=== PATIENT | male | born 1950 | race Caucasian/White ===

== ENCOUNTER 2023-01-15 05:26 | Emergency (ER) | payer MEDICARE, BC, SELFPAY ==
[2023-01-15 05:33] VITALS: BP 180/85; PULSE 82; RESP 20; TEMP 36.4; O2SAT 97; BMI 33.0
--- NOTE | 2023-01-15 05:50 | ED_ITS ---
HPI - General Adult General Chief complaint: Allergic Reaction Stated complaint: Reaction to meds Time Seen by Provider: 01/15/23 05:38 Source: patient Mode of arrival: ambulatory Limitations: no limitations History of Present Illness HPI narrative: 72-year-old male presents the emergency department with what he believes is a reaction to doxycycline. He was started on this on the for suspected urinary infection. This would be an unusual choice. He was told that he had no infection any is unsure why he is on the antibiotic. He certainly has no dysuria nor symptoms of any fevers. I do not have access any records that would explain the rationale here. Patient reports that he took his last dose of the doxycycline yesterday morning at around 6:30 a.m.. He says that he noticed a slightly blotchy rash on his chest. He spoke with the pharmacist yesterday afternoon and they told him it was likely from the doxycycline and he should discontinue it. He reports that he started having the same blotchy rash on his face and around his eyelids when he woke up this morning, therefore he comes to the emergency room. He notes no vision changes, no shortness of breath, no swallowing difficulty, no swelling of the tongue or lips. No prior history of similar reactions per his report. He has not taken any further doses of the doxycycline. No prior history of anaphylaxis. Past medical history reportedly benign per patient. Medications reviewed. ROS notable for no other generalized, HEENT, respiratory, cardiovascular, GI, skin or neurological changes. Related Data Home Medications Medication Instructions Recorded Confirmed atorvastatin 40 mg tablet 40 mg PO QPM 01/15/23 01/15/23 doxycycline hyclate 100 mg tablet 100 mg PO BID 01/15/23 01/15/23 lisinopril 10 mg tablet 10 mg PO DAILY 01/15/23 01/15/23 Exam Const: Vital Signs, click to edit/add: Vital Signs - 24 hr 01/15/23 05:33 Temperature 97.6 F Pulse Rate [Pulse Oximeter] 82 Respiratory Rate 20 Blood Pressure [Ri ght Upper Arm] 180/85 H Pulse Oximetry 97 Oxygen Delivery Me thod Room Air Documenting provider has reviewed patient's vital signs: yes Common normals: no apparent distress General appearance: cooperative, comfortable and well kempt HENMT: Common normals: normocephalic and head/scalp atraumatic Head and scalp: normocephalic and atraumatic Mouth: oral and palatal mucosa normal Throat: posterior oropharynx normal Other: Very mild facial swelling, lower eyelid, upper cheek. Tongue, lips, oral cavity, perioral area not affected. Eye: Common normals: conjunctivae normal Conjunctiva: conjunctiva(e) normal Other: Pupils equal and round, normal visual gaze and tracking Neck & C-Spine: Common normals: full ROM and no lymphadenopathy Resp: Common normals: normal respiratory effort, no use of accessory muscles and clear to auscultation bilaterally Effort & inspection: able to speak in complete sentences Auscultation: clear to auscultation bilaterally Cardio: Common normals: regular rate, regular rhythm, S1 normal heart sound, S2 normal heart sound and no murmurs Rate: regular rate Rhythm: regular rhythm Heart sounds: S1 normal and S2 normal Psych: Appearance: well kempt Attention/concentration: attention grossly intact Insight: fair Judgement: fair Skin: Narrative: Mild you should Isha rash on upper cheeks and lower eyelid is stated above. Not currently present on other areas of exposed skin. Course Course Hospital Course: Mild allergic reaction without signs of anaphylaxis. Patient will be given 20 mg of famotidine, tender prednisone, 25 of Benadryl and observed. If no further signs of anaphylaxis, will be discharged home with instructions to take a nondrowsy antihistamine like Claritin, Mery or Zyrtec twice daily for the next 5 days, discontinue the doxycycline. Benadryl 25 mg at bedtime for the next few nights and also every 8 hours as needed for worsening reaction. Alarm symptoms reviewed that would warrant ED presentation. He verbalizes understanding and agreement. May continue all other medications as prescribed Vital Signs Vital signs: Initial Vital Signs Temperature 97.6 F 01/15/23 05:33 Temperature Source Temporal Artery Scan 01/15/23 05:33 Pulse Rate 82 01/15/23 05:33 Respiratory Rate 20 01/15/23 05:33 Blood Pressure 180/85 H 01/15/23 05:33 Blood Pressure Mean 116 H 01/15/23 05:33 Pulse Oximetry 97 01/15/23 05:33 Oxygen Delivery Method Room Air 01/15/23 05:33 Vital Signs Temperature 97.6 F 01/15/23 05:33 Pulse Rate 82 01/15/23 05:33 Respiratory Rate 20 01/15/23 05:33 Blood Pressure 180/85 H 01/15/23 05:33 Pulse Oximetry 97 01/15/23 05:33 Oxygen Delivery Method Room Air 01/15/23 05:33 Temperature 97.6 F 01/15/23 05:33 Pulse Rate 82 01/15/23 05:33 Respiratory Rate 20 01/15/23 05:33 Blood Pressure 180/85 H 01/15/23 05:33 Pulse Oximetry 97 01/15/23 05:33 Oxygen Delivery Method Room Air 01/15/23 05:33 Discharge Plan Discharge Clinical Impression: Allergic reaction Patient Disposition: Home, Self-Care Condition: Stable Instructions: General Allergic Reaction (ED) Additional Instructions: Has we discussed, your having a mild allergic reaction, likely to the doxycycline. Do not restart taking that medication. To treat the reaction, I would like for you to continue on the regimen that we have started in the emergency department. You will take a nondrowsy antihistamine like Claritin, Mery, or Zyrtec twice daily for the next 5 days. You will take Benadryl 25 mg at bedtime every night for the next 2 night and also up to every 8 hours as needed if the reaction seems to be worsening. If you start to notice swelling of the tongue, throat, or difficulty breathing, come back to the emergency room. The rash and itchy reaction may come and go a bit, especially in the heat and with activity. This should start to improve in a couple of days. Activity Level: No Restrictions Discharge Diet: Regular Prescriptions: No Action atorvastatin 40 mg tablet 40 mg PO QPM lisinopril 10 mg tablet 10 mg PO DAILY doxycycline hyclate 100 mg tablet 100 mg PO BID Follow Up/Referrals: Beni Ragsdale MD [Primary Care Provider] - Stand Alone Forms: [employer] Info Instructions
[2023-01-15] MEDS: diphenhydrAMINE 25 MG CAPSULE PO (05:56)
[2023-01-15] MEDS: predniSONE 10 MG TABLET PO (05:56)
[2023-01-15] MEDS: FAMOTIDINE 20 MG TABLET PO (05:56)
== END 2023-01-15 06:13 | disposition home or self-care (01) ==
PROVIDERS: Emergency Provider Family Medicine; PCP Family Medicine
DX: T50.905A Adverse effect of unspecified drugs, medicaments and biological substances, initial encounter (principal)
CPT/HCPCS: 99282; 99283; A9270; J7512

== ENCOUNTER 2023-12-25 14:28 | Outpatient (RCR) | payer SELFPAY | END 2024-12-10 08:20 | disposition home or self-care (01) | LOC: MOW 14:28 | PROVIDERS: PCP Family Medicine; Visit Provider Family Medicine | DX: Z76.0 Encounter for issue of repeat prescription (principal) | CPT/HCPCS: S5170 ==

== ENCOUNTER 2025-04-06 12:46 | Emergency (ER) | payer MEDICARE, BC, SELFPAY ==
[2025-04-06] VITALS (11 sets, daily range): BP systolic 135–156; BP diastolic 67–70; PULSE 55–67; RESP 10–24; TEMP 36.4; O2SAT 93–99; BMI 34.5
--- OUTSIDE RECORDS SUMMARY | 2025-04-06 12:48 | XMS_ITS | Clinical Summary ---
Author Organization [facility] Address [address] [place] [address] Care Team Providers Care Campus Safety Officer Name Role Phone Beni Ragsdale MD Primary Care Provider [phone] Allergies Active Allergy Reactions Criticality Noted Date Comments Ciprofloxacin Other - Describe In Comment Field 05/16/2021 Leg weakness. Irregular heart beat. Doxycycline Hyclate Hives 02/05/2023 Medications aspirin (ECOTRIN) 81 mg enteric coated tablet Take 1 tablet by mouth once daily with a meal. 0 017 Active acetaminophen (TYLENOL EXTRA STRGTH) 500 mg tablet Take 1 tablet by mouth every 6 hours if needed. Max acetaminophen dose: 4000mg in 24 hrs. 0 021 Active sy-rqy-cjggf acid-lutein (Centrum Silver) 400-250 mcg chew Chew by mouth. 0 021 Active glucosam-chondroi tin-diet cb25 116-100 mg cap Take by mouth. 0 021 Active echinacea 400 mg capsule Take 1 Capsule (400 mg) by mouth once daily. 0 021 Active Aivtt-7-JKN-EPA-F savanah Oil 1,000 mg (120 mg-180 mg) cap Take 1 Capsule (1,000 mg) by mouth. 0 022 Active ascorbic acid, vitamin C, (Vitamin C) 500 mg tablet Take 500 mg by mouth once daily. Active omeprazole (PRILOSEC) 20 mg Delayed-Release capsule Take 1 Capsule (20 mg) by mouth two times daily before meals. Take 30 minutes prior to a meal 024 Active cyclobenzaprine (FLEXERIL) 10 mg tabletIndications :S/P cervical spinal fusion Take 0.5-1 Tablets (5-10 mg) by mouth 2 times daily if needed for Muscle Spasm. Wait until they call for this. 30 Tablet 2 025 Active lisinopriL (PRINIVIL; ZESTRIL) 10 mg tabletIndications :Hypertension, unspecified type TAKE ONE TABLET BY MOUTH ONE TIME DAILY 90 Tablet 025 Active atorvastatin (LIPITOR) 40 mg tabletIndications :Hyperlipidemia, unspecified hyperlipidemia type TAKE ONE TABLET BY MOUTH AT BEDTIME 90 Tablet 025 Active tamsulosin 0.4 mg capsuleIndication s:BPH with urinary obstruction Take 1 Capsule by mouth once daily after a meal. Take in the evening after supper. 90 Capsule 025 Active tamsulosin (FLOMAX) 0.4 mg capsuleIndication s:BPH with urinary obstruction Take 1 Capsule (0.4 mg) by mouth once daily after a meal. Take in the evening after supper. 90 Capsule 3 024 2024 Discontinued Active Problems Problem Noted Date Diagnosed Date DDD (degenerative disc disease), cervical 2018 HTN (hypertension) 03/19/2017 Prediabetes 02/06/2017 IFG (impaired fasting glucose) 01/18/2016 Non morbid obesity due to excess calories 2015 Erectile dysfunction 02/01/2015 S/P cervical spinal fusion 11/28/2009 Sensorineural hearing loss, bilateral 05/02/2008 Benign neoplasm of colon 02/27/2007 Overview (11/18/2023): Next colonoscopy due 09/2010 Colonoscopy 11/2023 2-SSA, repeat in 5 years Other and unspecified hyperlipidemia 11/27/2006 Encounters Date Type Department Care Team Description 03/31/2025 10:50 AM BREADMAN Office Visit [facility] [address] [place] [address] Marjorie Rudolph PA Toe Pain/problem (Dropped something on right big toe a few weeks ago while moving and it's all purple-only hurts if wearing shoes) 03/31/2025 Travel 03/31/2025 Refill [facility] [address] [place] [address] Beni Ragsdale MD Refill Request (Tamsulosin) 02/05/2025 Refill [facility] [address] [place] [address] Beni Ragsdale MD Refill Request (Lisinopril, Atorvastatin) 01/06/2025 Refill [facility] [address] [place] [address] Beni Ragsdale MD Refill Request from Last 3 Months Immunizations Immunization Administration Dates Next Due AMB Influenza, IIV4 PF (=>6 mos Flulaval,Fluzone Fluarix)(Flu Clinic Only) 02/24/2014 COVID-19 vaccine (Pfizer-Bio NTech 30mcg/0.3mL) 12YO+ XIANG-SUCROSE PF, MDV 08/29/2021 COVID-19 vaccine (CQuotient-Bio NTech 30mcg/0.3mL) PF, MDV 02/22/2021,08/04/2020,07/14/2020 Influenza A (H1N1), Inactivated 04/28/2009 Influenza A (H1N1), Inactiva deshawn (Age >=3 Years) 04/28/2009 Influenza, High-dose Inactivated 024,01/22/2019,01/14/2018,2015 Influenza, High-dose Quadriv alent Inactivated 01/31/2023,02/04/2022,01/28/2021,2019 Influenza, IIV3 (Age 6-35 mos) 03/08/2011,2009 Influenza, IIV3 (Age >=3 years) 07/06/19 16,03/02/2012,03/08/2011,2009,02/03/2009,02/18/2008,02/27/2007,1 06/09/2005,03/23/2005,03/26/2003 Influenza, IIV4 02/24/2014 Influenza, Inactivated IIV3 (Age 65+ Years) Preserv Free 02/05/2017 Pneumococcal Poly,23-Valent (Pneumovax) 08/27/2017 Pneumococcal conj 13-Valent (Prevnar 13) 08/12/2016,07/06/2015 Td, Preservative Free (age > = 7 Years) 08/28/2017 Tdap 09/04/2007 Zoster (Shingrix-RZV, recombinant) 11/02/2020, Family History Medical History Relation Name Comments Other Brother 1 Rob of old age at 89 Diabetes Brother 2 Woody of diabete s at 84 Other Brother 3 Drew of agent o range at 61 Cancer Father of brain c ancer at 85 Other Father of old age at 85 Heart Disease Maternal Uncle ME 50s Diabetes Mother 40s; of co mplic of this at age 68 Hypertension Mother Other Mother Morbid Obesity Cancer-colon Sister 1 Paola of this at about 77 Coronary artery disease Sister 2 Patricia CABG in her 70s; of CAD at 88 Valvular heart disease Sister 3 April Relation Name Status Comments Brother 1 Rob (Age 89) Brother 2 Woody (Age 84) Brother 3 Drew (Age 61) Father (Age 85) Maternal Uncle Mother (Age 68) Sister 1 Paola (Age 77) Sister 2 Patricia (Age 88) Sister 3 April Alive Social History Tobacco Use Types Packs/Day Years Used Date Smoking Tobacco: Former Cigarettes 0.5 10 0 05/12/1969 - 05/12/1979 Smokeless Tobacco: Never Tobacco Cessation:Counseling Given: Not Answered Alcohol Use Standard Drinks/Week Comments Not Currently 0 (1 standard drink = 0.6 oz pur e alcohol) rare holidays or anniversary PHQ-2 Answer Date Recorded PHQ-2 TOTAL SCORE 0 02/18/2024 Social Connections Answer Date Recorded Do you often feel lonely or isolated from those around you? 0 03/31/2025 Alcohol Use Answer Date Recorded How often do you have a drink containing alcohol ? 0 07/11/2021 Average Number of Drinks Not on file 022 How often do you have five or more drinks on one occasion? 0 07/11/2021 Financial Resource Strain Answer Date R ecorded Difficulty of Paying Living Expenses 3 03/31/2025 Difficulty of Paying Living Expenses Not on file 03/31/2025 Food Insecurity Answer Date Recorded Do you worry your food will run out before you are able to buy more? 1 03/31/2025 Transportation Needs Answer Date Record ed Does lack of transportation keep you from medica l appointments? 1 03/31/2025 Does lack of transportation keep you from work, meetings or getting things that you need? 1 03/31/2025 Housing Stability Answer Date Recorded What is your housing situation today? 1 03/31/2025 Utilities Answer Date Recorded Do you have trouble paying f or utilities (for example, heat, electricity, water, phone)? 1 03/31/2025 Sex and Gender Information Value Date Recorded Sex Assigned at Not on file Legal Sex Male 5:24 AM BREADMAN Gender Identity Not on file Sexual Orientation Not on file Occupation Industry Job Start Date Job End Date [place] Not on file Not on file Not on file Obstetrics History Last Filed Vital Signs Vital Sign Reading Time Taken Comments Blood Pressure 133/77 03/31/2025 10:51 AM BREADMAN Pulse 66 03/31/2025 10:51 AM BREADMAN Temperature 36.4 C (97.5 F) 04/25/2023 12:37 PM BREADMAN Respiratory Rate 16 11/11/2023 2:00 PM CDT Oxygen Saturation 98% 03/31/2025 10:51 AM BREADMAN Inhaled Oxygen Concentration - - Weight 89.4 kg (197 lb) 03/31/2025 10:51 AM BREADMAN Height 159.4 cm (5' 2.76) 02/18/2024 1:10 PM CD T Body Mass Index 35.17 02/18/2024 1:10 PM CDT Plan of Treatment Upcoming Encounters Date Type Department Care Team (Late st Contact Info) Description 04/15/2025 1:05 PM BREADMAN Office Visit [facility] [address] [place] [address] Beni Ragsdale MD [address] [place] [address] Health Maintenance Due Date Last Done Comments RSV vaccine for adults or (1 - 1-dose 75+ series) 2024 Influenza Vaccine (#1) 2025 , 01/22/2019, 01/14/2018, Additional history exists BMI (ht and wt on same day) for age 18+ 02/17/2025 02/18/2024, 10/01/2023, 09/11/2022, Additional history exists Depression screening for age 12+ 02/17/2025 02/18/2024, 10/01/2023, 10/01/2023, Additional history exists Medicare Wellness for age 65+ 02/18/2025 02/18/2024, 09/11/2022, 07/11/2021, Additional history exists Tetanus booster 08/29/2027 08/28/2017, 09/04/2007 Colonoscopy through age 75 11/10/202811/10, 11/11/2023, 11/11/2023 Lipids for age 45-75 02/17/2029 02/18/2024, 09/04/2022, 07/09/2021, Additional history exists Pneumococcal series for age 50+ Completed 08/27/2017, 08/12/2016, 07/06/2015 Zoster (shingles) series for age 50+ Completed 11/02/2020, 09/02/2020 Hepatitis C screening for age 18-79 Completed 07/09/2021 Hepatitis B series for 19+ Aged Out N o longer eligible based on patient's age to complete this topic Procedures Procedure Name Priority Date/Time Associated Diagnosis Comments LIPID PANEL W REFLEX MEASURED LDL Routine 02/18/2024 2:05 PM CDT Hyperlipidemia, unspecified hyperlipidemia type COLONOSCOPY DIAGNOSTIC Routine 11/11/2023 12:36 PM CDT Encounter for screening colonoscopy ANTI HCV Routine 07/09/2021 3:07 PM BREADMAN Need for hepatitis C screening test from Last 3 Months or Most Recently Relevant to Health Maintenance Results * (ABNORMAL) LIPID PANEL W REFLEX MEASURED LDL (02/18/2024 2:05 PM CDT) CHOLESTEROL, TOTAL 153 <200 mg/dL [facility] HDL CHOLESTEROL 46 > OR = 40 mg/dL [facility] TRIGLYCERIDES 167(H) <150 mg/dL [facility] LDL-CHOLESTEROL 80 mg/dL (calc) [facility] Comment: Reference range: <100 Desirable range <100 mg/dL for primary prevention; <70 mg/dL for patients with CHD or diabetic patients with > or = 2 CHD risk factors. LDL-C is now calculated using the Damon calculation, which is a validated novel method providing better accuracy than the Friedewald equation in the estimation of LDL-C. Lyle SS et al. TEDDY. 2013;310(75): 7192-5071 (http://education.Nubity/faq/PCH207) CHOL/HDLC RATIO 3.3 <5.0 (calc) [facility] NON HDL CHOLESTEROL 107 <130 mg/dL (calc) [facility] Comment: For patients with diabetes plus 1 major ASCVD risk factor, treating to a non-HDL-C goal of <100 mg/dL (LDL-C of <70 mg/dL) is considered a therapeutic option. Blood BLOOD SPECIMEN / Unknown 02/18/2024 2:05 PM CDT 02/18/2024 2:06 PM CDT Narrative [facility] - 02/19/2024 6:06 AM CDT FASTING:NO FASTING: NO Beni Ragsdale MD CHEMISTRY Final Resu lt [facility] [address] [place] [address], [facility] [id number] * COLONOSCOPY (11/11/2023 1:14 PM CDT) 11/11/2023 1:14 PM CDT Narrative Transcriptions Lyle Katz MD - 11/11/2023 1:46 PM CDT Patient Name: Nate Porras Procedure Date: 11/11/2023 Gender: Male Date of : 1950 Admit Type: Outpatient Procedure: Colonoscopy Proceduralist: Lyle Katz MD , Ericka Mckenna (Nurse), Maritza Andino (Nurse) Referring MD: Beni Ragsdale Indications/Pre-Op Diagnosis: Screening for colorectal malignant neoplasm, Last colonoscopy: date unknown (unable to locate last colonoscopy report) Medications: Fentanyl 100 micrograms IV, Midazolam 3 mgIV, The level of sedation administered wasmoderate Procedure Description: The patient had risks, benefits and alternatives explained to andgave informed consent. The patient had a stable cardiopulmonary status and judged an adequate candidate for conscious sedation. The [id number] was passed through the anus and advanced to the cecum, identified by appendiceal orifice and ileocecal valve. Thecolonoscopy was performed without difficulty. The patient tolerated the procedure well. The quality of the bowel preparation was good. The ileocecal valve, appendiceal orifice, and rectum were photographed. Complications: No immediate complications. Estimated Blood Loss & Specimen: Estimated blood loss: none. Specimen collected - Yes and sent to Laboratory Findings: The perianal and digital rectal examinations were normal. Two sessile polyps were found in the cecum. The polyps were 2 to 3 mmin size. These polyps were removed with a cold snare. Resection and retrieval were complete. The exam was otherwise without abnormality. Impressions/Post-Op Diagnosis: - Two 2 to 3 mm polyps in the cecum, removed with a cold snare.Resected and retrieved. - The examination was otherwise normal. Recommendation: - Patient has a contact number available for emergencies. The signsand symptoms of potential delayed complications were discussed with the patient. Return to normal activities tomorrow. Written discharge instructions were provided to the patient. - Resume previous diet. - Continue present medications. - Await pathology results. - Repeat colonoscopy is recommended. The colonoscopy date will be determined after pathology results from today's exam become available for review. Moderate Sedation: A time out was performed before the procedure. Moderate (conscious) sedation was administered by the endoscopy nurse and supervised bythe endoscopist. The following parameters were monitored: oxygensaturation, heart rate, blood pressure, EKG, CO2, respiratory rate, adequacy of pulmonary ventilation and reponse to care. Please refer to the patient's medical record flowsheets and nursing notes for moderate sedation details. Total physician intraservice time was 18 minutes. Lyle Katz MD 11/11/2023 1:46:09 PM This report has been signed electronically. Note Initiated On: 11/11/2023 1:14 PM Procedure Code(s): --- Professional --- 42916, Colonoscopy, flexible; with removalof tumor(s), polyp(s), or other lesion(s) bysnare technique Diagnosis Code(s): --- Professional --- Z12.11, Encounter for screening formalignant neoplasm of colon D12.0, Benign neoplasm of cecum CPT copyright 2022 [employer]. All rights reserved. The codes documented in this report are preliminary and upon waffle machine operator reviewmay be revised to meet current compliance requirements. Scope In: 1:26:37 PM Scope Withdrawal Time 0 hours 10 minutes 20 seconds Scope Out: 1:41:03 PM us Lyle Katz MD PROCEDURE ORD Final Res ult * ANTI HCV (07/09/2021 3:07 PM BREADMAN) HEPATITIS C ANTIBODY Non-React mone Non-React mone 07/09/2021 10:25 PM [facility]READMAN [facility] Comment:Antibodies to HCV no t detected; does not exclude the possibility of exposure to HCV. Blood BLOOD SPECIMEN / Unknown Venipuncture / Unknown 07/09/2021 3:07 PM BREADMAN 07/09/2021 3:08 PM BREADMAN us Beni Ragsdale MD SEND OUTS Final Resu lt [facility] [address] [place] [address], [place] from Last 3 Months or Most Recently Relevant to Health Maintenance Insurance MEDICARE PART B HB ONLY [place] BLUE HB ONLY [place] BLUE MR PB ONLY TG [employer] INSURANCE Advance Directives Documents on File Type Date Recorded Patient Collar Sewer Expl anation Healthcare Directive 01/28/2023 023 Care Teams Campus Safety Officer Relationship Specialty Start Date End Date Beni Ragsdale MD [address] [place] [address] PCP - General Family Practice 01/28/17
--- NOTE | 2025-04-06 13:03 | CRLHL7_ITS ---
For Patients: As a result of the Century Cures Act, medical imaging exams and procedure reports are released immediately into your electronic medical record. You may view this report before your referring provider. If you have questions, please contact your health care provider. INDICATION: Chest pain COMPARISON: None. TECHNIQUE: Single frontal radiographic view(s) of the chest. FINDINGS: No substantial pleural effusion. No definite focal pulmonary consolidation. Normal heart size. No acute osseous findings. There are osseous degenerative changes. IMPRESSION: No acute thoracic findings. Dictated by Fortino Rios MD @ 04/06/2025 1:40:22 PM (Electronically Signed)
--- NOTE | 2025-04-06 13:04 | ED.GENADULT ---
HPI - General Adult General Chief complaint: Chest Pain Stated complaint: LT side chest pain down to arm fingers numb Time Seen by Provider: 04/06/25 12:49 History of Present Illness HPI narrative: Patient is a pleasant 74-year-old male who has had intermittent pinpoint finger tip type chest discomfort in his left anterior chest over the last few days on and off. He took some Advil and went away. He has been taking some Tylenol. Seems to come and go. Not associated with activity year breathing. He will occasionally notice a little bit of tingling down his arm as well but that is been intermittent. He has no neck pain no jaw pain no diaphoresis nausea or vomiting no anterior chest heaviness. Patient has no history of coronary disease, he is hypertensive and takes medicine for that, his cholesterols the been controlled with atorvastatin. He sees Dr. Jones. He has never had cardiac cardiac issues. No leg swelling, edema or bleeding or clotting problems. Related Data Home Medications ?Medication ?Instructions ?Recorded ?Confirmed atorvastatin 40 mg tablet 40 mg PO QPM 01/15/23 01/01/24 lisinopril 10 mg tablet 10 mg PO DAILY 01/15/23 01/01/24 ascorbate calcium (vitamin C) 500 1 g PO Q6H 01/01/24 01/01/24 mg tablet aspirin 81 mg tablet,delayed 81 mg PO QDAY 01/01/24 01/01/24 release echinacea PO 01/01/24 01/01/24 fish oil-dha-epa PO 01/01/24 01/01/24 glucosamine sulfate [Cidatrine PO 01/01/24 01/01/24 (glucosamine)] multivit with min-folic acid PO 01/01/24 01/01/24 [Centrum Adults] omeprazole 40 mg capsule,delayed 40 mg PO QDAY 01/01/24 01/01/24 release tamsulosin 0.4 mg capsule mg PO DAILY 01/01/24 01/01/24 Allergies Allergy/AdvReac Type Severity Reaction Status Date / Time ciprofloxacin Allergy Verified 01/01/24 10:00 doxycycline Allergy Verified 01/01/24 10:00 Review of Systems Status of ROS: Reports: 6 or more systems reviewed and unremarkable except as noted in History and below Narrative: Patient denies any symptoms now and does not other than when he pushes on his left chest he can recreate a pinpoint finger tip area where he is tender. He has no shortness of breath. Exam Narrative: Exam Narrative: Objective vital signs are within normal limits other than slightly hypertensive systolic Alert or x3 no distress HEENT unremarkable no facial asymmetry no cyanosis Neck is supple Chest clear Heart rhythm regular without murmur Patient has some mildly tender finger tip palpable tenderness in his left anterior lateral clavicular line anterior axillary area. Has normal strength sensation in the left upper extremity. Normal neurologic exam upper lower extremities. Legs no edema, no swelling no Homans sign. Const: Vital Signs, click to edit/add: Vital Signs - 24 hr 04/06/25 12:54 04/06/25 13:00 04/06/25 13:01 Temperature 97.5 F L Pulse Rate 67 65 Pulse Rate [Pulse Oximeter] 67 Respiratory Rate 16 24 13 Blood Pressure 156/69 H Blood Pressure [Ri ght Upper Arm] 156/69 H Pulse Oximetry 95 98 97 Oxygen Delivery Me thod Room Air 04/06/25 13:15 04/06/25 13:29 04/06/25 13:30 Temperature Pulse Rate 62 66 62 Pulse Rate [Pulse Oximeter] Respiratory Rate 13 23 19 Blood Pressure 138/69 Blood Pressure [Ri ght Upper Arm] Pulse Oximetry 97 96 99 Oxygen Delivery Me thod 04/06/25 13:32 04/06/25 13:45 Temperature Pulse Rate 61 58 L Pulse Rate [Pulse Oximeter] Respiratory Rate 18 18 Blood Pressure 143/70 H Blood Pressure [Ri ght Upper Arm] Pulse Oximetry 93 98 Oxygen Delivery Me thod Course Vital Signs Vital signs: Initial Vital Signs Temperature 97.5 F L 04/06/25 12:54 Temperature Source Temporal Artery Scan 04/06/25 12:54 Pulse Rate 67 04/06/25 12:54 Respiratory Rate 16 04/06/25 12:54 Blood Pressure 156/69 H 04/06/25 12:54 Blood Pressure Mean 98 04/06/25 12:54 Blood Pressure Position Sitting 04/06/25 12:54 Pulse Oximetry 95 04/06/25 12:54 Oxygen Delivery Method Room Air 04/06/25 12:54 Vital Signs Temperature 97.5 F L 04/06/25 12:54 Pulse Rate 67 04/06/25 12:54 Respiratory Rate 16 04/06/25 12:54 Blood Pressure 156/69 H 04/06/25 12:54 Pulse Oximetry 95 04/06/25 12:54 Oxygen Delivery Method Room Air 04/06/25 12:54 Temperature 97.5 F L 04/06/25 12:54 Pulse Rate 58 L 04/06/25 13:45 Respiratory Rate 18 04/06/25 13:45 Blood Pressure 143/70 H 04/06/25 13:32 Pulse Oximetry 98 04/06/25 13:45 Oxygen Delivery Method Room Air 04/06/25 12:54 Medications Administered Medications: Discontinued Medications Generic Name Dose Route Start Last Admin Trade Name Khoa PRN Reason Stop Dose Admin Aspirin 324 mg 04/06/25 13:02 04/06/25 13:28 Aspirin 81 Mg Tab.Chew PO 04/06/25 13:03 324 mg ONCE ONE Administration Medical Decision Making MDM Narrative Medical decision making narrative: 74-year-old white male with atypical chest discomfort finger tip area in his left lateral chest wall occasional numbness feeling in his arm he does not have any pain in his arm he has not had any pain in his neck or range of motion deficit his neck. He took Advil and the symptoms went away. They have come back over a couple of days. Not necessarily with activity or exertion. Suspicion be low for acute coronary syndrome, I do not believe he has symptoms consistent with PE, will check a chest x-ray, laboratory studies including troponin. He also had an EKG that by my independent read shows normal sinus rhythm no acute ST-T changes rate at 63 beats per minute. If his studies are normal and reassuring I think follow-up with his regular doctor within the next 5-7 days is okay recommend dialer activity, ibuprofen 600 mg 3 times a day over the next few days. Take on a steady basis. Return if problems or concerns. Addendum 2:07 p.m. chest x-ray looks largely unremarkable by my independent read. His troponin is negative high sensitivity, CRP is negative, CBC looks unremarkable 2. He has no active symptoms now. I would suggest that he try some ibuprofen to 3 times a day over the next 4-5 days and see if that does not get this chest wall tiny area of discomfort down. Would also recommend recheck with Dr. Beena munguia the next few days regarding his symptoms and whether he needs routine preventative screening such as stress test studies and other concern. He was comfortable assessment plan will recheck as directed above. Again low suspicion for acute coronary syndrome given the nature of the discomfort and the palpable nature of it as well as reassuring troponin and EKG. And chest x-ray Lab Data Labs: Lab Results 04/06/25 04/06/25 Range/Units 13:03 13:13 WBC 5.75 (4.50-11.00) K/uL RBC 4.78 (4.30-5.90) m/uL Hgb 14.4 (13.5-17.5) gm/dL Hct 42.4 (37.0-53.0) % MCV 89 (80-100) fL MCH 30 (26-34) pg MCHC 34 (32-36) gm/dL RDW Coeff of Belen 12.0 (11.5-15.5) % Plt Count 170 (140-440) K/uL Neut % (Auto) 57.0 (42.0-72.0) % Lymph % (Auto) 32.3 (20-44) % Cavalier % (Auto) 7.0 (0.0-11.0) % Eos % (Auto) 2.8 (0.0-7.0) % Baso % (Auto) 0.7 (0.0-3.0) % Neut # (Auto) 3.28 (1.7-7.0) K/uL Lymph # (Auto) 1.86 (0.90-2.90) K/uL Cavalier # (Auto) 0.40 (0.00-0.90) K/UL Eos # (Auto) 0.16 (0.00-0.50) K/uL Baso # (Auto) 0.04 (0.00-0.30) K/uL Abs Immat Gran (auto) 0.01 (0.00-0.30) K/uL Imm/Tot Granulo (auto) 0.2 % Sodium 138 (135-149) mmol/L Potassium 3.8 (3.6-5.1) mmol/L Chloride 107 (96-114) mmol/L Carbon Dioxide 22 (20-32) mmol/L Anion Gap 9 (7-15) mEq/L BUN 14 (7-30) mg/dL Creatinine 0.9 (0.5-1.5) mg/dL Estimated Creat Clear 53.44 Estimated GFR 89 ml/min Glucose 101 (60-115) mg/dL Calcium 8.7 (8.4-10.6) mg/dL POC Troponin I High Sensi < 2.9 L (2.9-28.0) pg/mL C-Reactive Protein < 0.5 L (0.5-1.0) mg/dL Discharge Plan Discharge Clinical Impression: Chest wall pain Patient Disposition: Home w/ Parent or Adult Condition: Stable Additional Instructions: Light activity, Advil 2 tablets 3 times a day for the next 4-5 days, follow-up with Dr. gallagher in the next week or so. Return to ED sooner problems or concerns. Activity Level: Light activity Discharge Diet: Regular Prescriptions: No Action tamsulosin 0.4 mg capsule PO DAILY aspirin 81 mg tablet,delayed release (DR/EC) 81 mg PO QDAY multivit with min-folic acid [Centrum Adults] PO ascorbate calcium (vitamin C) 500 mg tablet 1 g PO Q6H fish oil-dha-epa PO glucosamine sulfate [Cidatrine (glucosamine)] PO echinacea PO omeprazole 40 mg capsule,delayed release(DR/EC) 40 mg PO QDAY atorvastatin 40 mg tablet 40 mg PO QPM lisinopril 10 mg tablet 10 mg PO DAILY Follow Up/Referrals: Beni Ragsdale MD [Primary Care Provider, Family Practice] Stand Alone Forms: [facility] Info Instructions
[2025-04-06 13:26] LABS: Hematocrit* 42.4 % (37.0-53.0); Hemoglobin* 14.4 gm/dL (13.5-17.5); Immature Granulocytes Abs Auto 0.01 K/uL (0.00-0.30); Immature Granulocytes Pct Auto 0.2 %; Lymphocytes Absolute Auto 1.86 K/uL (0.90-2.90); Mean Corpuscular HGB Conc 34 gm/dL (32-36); Mean Corpuscular Hemoglobin 30 pg (26-34); Mean Corpuscular Volume 89 fL (80-100); RDW Coefficient of Variation % 12.0 % (11.5-15.5); Red Blood Count* 4.78 m/uL (4.30-5.90); White Blood Count* 5.75 K/uL (4.50-11.00)
[2025-04-06] MEDS: ASPIRIN 81 MG TAB.CHEW 324 MG PO (13:28)
[2025-04-06 13:40] LABS: Chloride* 107 mmol/L (96-114); Potassium* 3.8 mmol/L (3.6-5.1); Sodium* 138 mmol/L (135-149)
[2025-04-06 13:41] LABS: Slide Review Reflex No
[2025-04-06 13:44] LABS: Anion Gap 9 mEq/L (7-15); Blood Urea Nitrogen* 14 mg/dL (7-30); Calcium* 8.7 mg/dL (8.4-10.6); Carbon Dioxide* 22 mmol/L (20-32); Creatinine* 0.9 mg/dL (0.5-1.5); Est. Creatinine Clearance* 53.44; Estimated Glomerular Filt Rate 89 ml/min; Glucose* 101 mg/dL (60-115)
== END 2025-04-06 14:24 | disposition home or self-care (01) ==
PROVIDERS: Emergency Provider Family Medicine; PCP Family Medicine
DX: R07.89 Other chest pain (principal); R20.0 Anesthesia of skin; Z79.899 Other long term (current) drug therapy
CPT/HCPCS: 36415; 71045; 80048; 84484; 85025; 86140; 93005; 99284; 99285; A9270